=== PATIENT | female | born 2000 | race Caucasian/White ===

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

== ENCOUNTER 2020-08-31 20:03 | Emergency (ER) | payer BC ==
[2020-08-31] MEDS ORDERED: Sodium Chloride 0.9% 1,000 ML IV ONE (20:10)
[2020-08-31 20:34] LABS: SODIUM,NA 141 mmol/L (136-145)
--- NOTE | 2020-08-31 20:52 | EDM.PDOC ---
ED HPI GENERAL MEDICAL PROBLEM - General Chief Complaint: Syncope Stated Complaint: PASSING OUT / TROUBLE BREATHING Time Seen by Provider: 08/31/20 20:15 Source of Information: Reports: Patient, Family History Limitations: Reports: No Limitations - History of Present Illness INITIAL COMMENTS - FREE TEXT/NARRATIVE: ED with family via wheelchair mom reports recurrent syncopal episodes Hx CARUSO disease. Tonight c/o chest hurting. has had similar episodes in past but usually resolve in 30minutes this ongoing for longer time. C/o generalized body aches feel sore throat tonight. Mom states no episodes for approximately 6 months then out in heat on Sunday and "passed out" a couple times after came back inside. 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 Musculoskeletal 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: None Neurological 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: Other (See Below) Other Neuro History: POTS Psychiatric 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: Anxiety, Depression Endocrine/Metabolic 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: None Hematologic 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: None Immunologic 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: None Oncologic (Cancer) 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: None Dermatologic 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: None Social & Family History - Family History Family Medical History: No Pertinent Family History - Tobacco Use Tobacco Use Status *Q: Never Tobacco User Second Hand Smoke Exposure: No - Caffeine Use Caffeine Use: Reports: Coffee - Recreational Drug Use Recreational Drug Use: No - Living Situation & Occupation Living situation: Reports: with Family Occupation: Student ED ROS GENERAL - Review of Systems Review Of Systems: Comprehensive ROS is negative, except as noted in HPI. - Physical Exam Exam: See Below Exam Limited By: No Limitations General Appearance: Alert, Mild Distress Eye Exam: Bilateral Eye: EOMI Ears: Normal External Exam Nose: Normal Inspection Throat/Mouth: Normal Inspection Head Exam: Atraumatic, Normocephalic Neck: Normal Inspection, Full Range of Motion Respiratory/Chest: No Respiratory Distress, Lungs Clear, Normal Breath Sounds Cardiovascular: Normal Peripheral Pulses, Regular Rate, Rhythm, Tachycardia GI/Abdominal: Normal Bowel Sounds, Soft, Non-Tender Neuro Exam (Abbreviated): Other (perodic brief syncopal episodes but does arouse easily to moms voice. ) #1 Interpretation EKG Date: 08/31/20 Time: 20:22 Rhythm: Other (sinus tachycardia) Rate (Beats/Min): 101 [place]: Normal P-Wave: Present QRS: Normal ST-T: Normal Comparison: No Change Course - Vital Signs Last Recorded V/S: Last Vital Signs Temp 97.8 F 08/31/20 20:16 Pulse 109 H 08/31/20 20:16 Resp 12 08/31/20 20:16 BP 140/84 08/31/20 20:16 Pulse Ox 100 08/31/20 20:16 - Orders/Labs/Meds Orders: Active Orders 24 hr Category Date Time Status CULTURE STREP A CONFIRMATION [] Stat Lab 08/31/20 21:04 Results CULTURE URINE [] Stat Lab 08/31/20 21:20 Received STREP SCRN A RAPID W CULT CONF [] Stat Lab 08/31/20 21:04 Results Labs: Laboratory Tests 08/31/20 08/31/20 08/31/20 Range/Units 20:11 20:11 20:11 WBC 15.9 H (5.0-10.0) 10^3/uL RBC 4.67 (4.2-5.4) 10^6/uL Hgb 13.2 (12.0-16.0) g/dL Hct 39.9 (37.0-47.0) % MCV 85.4 (80-100) fL MCH 28.3 (27.0-34.0) pg MCHC 33.1 (33.0-35.0) g/dL Plt Count 305 D (150-450) 10^3/uL Neut % (Auto) 85.6 H (42.2-75.2) % Lymph % (Auto) 7.5 L (20.5-50.1) % [place] % (Auto) 6.2 (2-8) % Eos % (Auto) 0.6 L (1.0-3.0) % Baso % (Auto) 0.1 (0.0-1.0) % Sodium 141 (136-145) mmol/L Potassium 3.9 (3.5-5.1) mmol/L Chloride 102 (98-107) mmol/L Carbon Dioxide 25 (21-32) mmol/L Anion Gap 17.9 H (7-13) mEq/L BUN 9 (7-18) mg/dL Creatinine 0.90 (0.55-1.02) mg/dL Est Cr Clr Drug Dosing 86.82 mL/min Estimated GFR (MDRD) > 60 BUN/Creatinine Ratio 10.0 (No establ ref range) Glucose 104 H (70-99) mg/dL Lactic Acid 1.6 (0.4-2.0) mmol/L Calcium 8.9 (8.5-10.1) mg/dL Total Bilirubin 0.3 (0.2-1.0) mg/dL AST 15 (15-37) U/L ALT 26 (14-59) U/L Alkaline Phosphatase 62 (46-116) U/L C-Reactive Protein 6.4 H (0.0-0.9) mg/dL Total Protein 7.7 (6.4-8.2) g/dL Albumin 3.6 (3.4-5.0) g/dL Globulin 4.1 Albumin/Globulin Ratio 0.9 Amylase 54 (25-115) U/L Lipase 122 (73-393) U/L HCG, Qual Negative Urine Color (YELLOW) Urine Appearance (CLEAR) Urine pH (5.0-9.0) Ur Specific [place] (1.005-1.030) Urine Protein (NEGATIVE) Urine Glucose (UA) (NEGATIVE) Urine Ketones (NEGATIVE) Urine Occult Blood (NEGATIVE) Urine Nitrite (NEGATIVE) Urine Bilirubin (NEGATIVE) Urine Urobilinogen (0.2-1.0) mg/dL Ur Leukocyte Esterase (NEGATIVE) Urine RBC /HPF Urine WBC (0-5/HPF) /HPF Ur Epithelial Cells (NOT SEEN) /HPF Amorphous Sediment (NOT SEEN) /HPF Urine Bacteria (0-FEW/HPF) /HPF Urine Mucus (NOT SEEN) /LPF Influenza Type A RNA (NEGATIVE) Influenza Type B RNA (NEGATIVE) SARS-CoV-2 RNA (CHEVY) (NEGATIVE) 08/31/20 08/31/20 Range/Units 20:17 21:20 WBC (5.0-10.0) 10^3/uL RBC (4.2-5.4) 10^6/uL Hgb (12.0-16.0) g/dL Hct (37.0-47.0) % MCV (80-100) fL MCH (27.0-34.0) pg MCHC (33.0-35.0) g/dL Plt Count (150-450) 10^3/uL Neut % (Auto) (42.2-75.2) % Lymph % (Auto) (20.5-50.1) % [place] % (Auto) (2-8) % Eos % (Auto) (1.0-3.0) % Baso % (Auto) (0.0-1.0) % Sodium (136-145) mmol/L Potassium (3.5-5.1) mmol/L Chloride (98-107) mmol/L Carbon Dioxide (21-32) mmol/L Anion Gap (7-13) mEq/L BUN (7-18) mg/dL Creatinine (0.55-1.02) mg/dL Est Cr Clr Drug Dosing mL/min Estimated GFR (MDRD) BUN/Creatinine Ratio (No establ ref range) Glucose (70-99) mg/dL Lactic Acid (0.4-2.0) mmol/L Calcium (8.5-10.1) mg/dL Total Bilirubin (0.2-1.0) mg/dL AST (15-37) U/L ALT (14-59) U/L Alkaline Phosphatase (46-116) U/L C-Reactive Protein (0.0-0.9) mg/dL Total Protein (6.4-8.2) g/dL Albumin (3.4-5.0) g/dL Globulin Albumin/Globulin Ratio Amylase (25-115) U/L Lipase (73-393) U/L HCG, Qual Urine Color Yellow (YELLOW) Urine Appearance Slightly cloudy (CLEAR) Urine pH 7.0 (5.0-9.0) Ur Specific [place] 1.015 (1.005-1.030) Urine Protein Negative (NEGATIVE) Urine Glucose (UA) Negative (NEGATIVE) Urine Ketones Negative (NEGATIVE) Urine Occult Blood Trace-intact H (NEGATIVE) Urine Nitrite Negative (NEGATIVE) Urine Bilirubin Negative (NEGATIVE) Urine Urobilinogen 0.2 (0.2-1.0) mg/dL Ur Leukocyte Esterase Trace H (NEGATIVE) Urine RBC 5-10 H /HPF Urine WBC 5-10 H (0-5/HPF) /HPF Ur Epithelial Cells Few (NOT SEEN) /HPF Amorphous Sediment Rare (NOT SEEN) /HPF Urine Bacteria Moderate H (0-FEW/HPF) /HPF Urine Mucus Few H (NOT SEEN) /LPF Influenza Type A RNA Negative (NEGATIVE) Influenza Type B RNA Negative (NEGATIVE) SARS-CoV-2 RNA (CHEVY) Negative (NEGATIVE) Meds: Medications Discontinued Medications Generic Name Dose Route Start Last Admin Trade Name Freq PRN Reason Stop Dose Admin Sodium Chloride 1,000 mls @ 999 mls/hr 08/31/20 20:10 08/31/20 20:20 Normal Saline IV 08/31/20 21:10 999 mls/hr .BOLUS ONE Administration Ketorolac Tromethamine 15 mg 08/31/20 22:33 08/31/20 22:47 Ketorolac 30 Mg/Ml Sdv IVPUSH 08/31/20 22:34 15 mg ONETIME ONE Administration Methylprednisolone Sodium Succinate 62.5 mg 08/31/20 21:44 08/31/20 21:51 Methylprednisolone Sodium Succinate 125 Mg/2 Ml Sdv IVPUSH 08/31/20 21:45 62.5 mg ONETIME ONE Administration Nitrofurantoin Macrocrystals 100 mg 08/31/20 22:32 08/31/20 22:48 Nitrofurantoin Monohydrate/Macrocrystalline 100 Mg Cap PO 08/31/20 22:33 100 mg ONETIME ONE Administration - Re-Assessments/Exams Free Text/Narrative Re-Assessment/Exam: 08/31/20 20:51 family at bedside. improved with fluids. alert talking and laughing with family. Departure - Departure Time of Disposition: 22:40 Disposition: Home, Self-Care 01 Condition: Good Clinical Impression: POTS (postural orthostatic tachycardia syndrome) UTI (urinary tract infection) Qualifiers: Urinary tract infection type: acute cystitis Hematuria presence: without hematuria Qualified Code(s): N30.00 - Acute cystitis without hematuria Syncopal episodes Qualifiers: Syncope type: unspecified Qualified Code(s): R55 - Syncope and collapse - Discharge Information *PRESCRIPTION DRUG MONITORING PROGRAM REVIEWED*: No *COPY OF PRESCRIPTION DRUG MONITORING REPORT IN PATIENT BLAIR: No Instructions: Dehydration, Adult, [id number], Urinary Tract Infection, Adult Forms: ED Department Discharge Additional Instructions: macrobid 100mg twice daily for one week clinic follow up this week increase fluids alternate tylenol and ibuprofen every 4 hours as needed for discomfort Sepsis Event Note (ED) - Evaluation Sepsis Screening Result: No Definite Risk - Focused Exam Vital Signs: Vital Signs Temp Pulse Resp BP Pulse Ox 08/31/20 20:16 97.8 F 109 H 12 140/84 100 - My Orders Last 24 Hours: My Active Orders 08/31/20 21:04 CULTURE STREP A CONFIRMATION [RM] Stat STREP SCRN A RAPID W CULT CONF [RM] Stat 08/31/20 21:20 CULTURE URINE [RM] Stat - Assessment/Plan Last 24 Hours: My Active Orders 08/31/20 21:04 CULTURE STREP A CONFIRMATION [RM] Stat STREP SCRN A RAPID W CULT CONF [RM] Stat 08/31/20 21:20 CULTURE URINE [RM] Stat
[2020-08-31 20:55] LABS: ANION GAP 17.9 mEq/L (7-13); CHLORIDE,CL 102 mmol/L (98-107)
[2020-08-31 20:59] LABS: CORONAVIRUS COVID-19 NAA NEGATIVE (NEGATIVE)
[2020-08-31] MEDS ORDERED: methylPREDNISolone Sodium Succinate 125 MG/2 ML SDV IVPUSH ONE (21:44)
[2020-08-31] MEDS ORDERED: Nitrofurantoin Monohydrate/Macrocrystalline 100 MG Cap PO ONE (22:32)
[2020-08-31] MEDS ORDERED: Ketorolac 30 MG/ML SDV IVPUSH ONE (22:33)
== END 2020-08-31 22:58 | disposition home or self-care (01) ==
LOC: DL.ED 20:03
DX: I49.8 Other specified cardiac arrhythmias (principal); N30.00 Acute cystitis without hematuria; R00.0 Tachycardia, unspecified; Z20.822 Contact with and (suspected) exposure to COVID-19
CPT/HCPCS: 0240U; 36415; 80053; 81001; 82150; 83605; 83690; 84703; 85025; 86140; 87081; 87086; 87430; 93005; 93010; 96374; 96375; 99284; 99285; A9270; J1885; J2930; J7030

== ENCOUNTER 2020-12-06 14:20 | Emergency (ER) | payer BC ==
[2020-12-06] MEDS ORDERED: Acetaminophen/oxyCODONE 325-5 MG Tab PO ONE (14:21)
[2020-12-06] MEDS ORDERED: Sodium Chloride 0.9% 1,000 ML IV ONE (14:51)
[2020-12-06] MEDS ORDERED: Morphine 2 MG/ML SYRINGE IVPUSH ONE (14:51)
--- NOTE | 2020-12-06 14:58 | EDM.PDOC ---
ED HPI GENERAL MEDICAL PROBLEM - General Chief Complaint: Abdominal Pain Stated Complaint: SEVERE PAIN LOWER RIGHT SIDE Time Seen by Provider: 12/06/20 14:45 Source of Information: Reports: Patient History Limitations: Reports: No Limitations - History of Present Illness INITIAL COMMENTS - FREE TEXT/NARRATIVE: This 20 yo female patient reports to the ED with increased pain in her right lower quadrant. The patient reports she has been experiencing similar intermittent symptoms over the past 9 months. The patient reports she has been worked up in 2 ED's, by medical support specialist, by a GI specialist and by her primary care provider. The patient reports she has had [address] scans of her abdomen and pelvis. The patient reports her first scan demonstrated some signs of a urinary tract infection (Pylonephritis) and ovarian cysts. The patient reports her 2nd CT demonstrated some scarring in her right kidney, but no additional abnormalities. The patient reports she was sent to PT due to a possible abdominal wall injury. After 2 visits to PT, the patient reports she was sent to the ED for further evaluation and management. The patient reports her current pain is a 5/10, but her pain increases to a 9/10 with movement and with palpation. Duration: Week(s):, Intermittent Location: Reports: Abdomen (RLQ) Quality: Reports: Ache, Sharp, Stabbing Severity: Severe Improves with: Reports: None Worsens with: Reports: None Context: Reports: Other Associated Symptoms: Reports: No Other Symptoms Right Lower Abdomen Pain Score (Numeric/FACES): 5 - Related Data Allergies Allergy/AdvReac Type Severity Reaction Status Date / Time No Known Allergies Allergy Verified 12/06/20 14:29 Home Meds: Home Meds Desogestrel-Ethinyl Estradiol [Isibloom 28 Day Tablet] 1 each PO DAILY 12/06/20 [History] Past Medical History HEENT 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: None Cardiovascular 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: None Respiratory 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: None Gastrointestinal 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: None Genitourinary 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: None 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: 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 Musculoskeletal 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: None Neurological 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: Other (See Below) Other Neuro History: POTS Psychiatric 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: Anxiety, Depression Endocrine/Metabolic 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: None Hematologic 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: None Immunologic 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: None Oncologic (Cancer) 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: None Dermatologic 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: None Social & Family History - Family History Family Medical History: No Pertinent Family History - Tobacco Use Tobacco Use Status *Q: Never Tobacco User Second Hand Smoke Exposure: No - Caffeine Use Caffeine Use: Reports: Coffee - Recreational Drug Use Recreational Drug Use: No - Living Situation & Occupation Living situation: Reports: with Family Occupation: Student ED ROS GENERAL - Review of Systems Review Of Systems: Comprehensive ROS is negative, except as noted in HPI. ED EXAM, GI/ABD - Physical Exam Exam: See Below Exam Limited By: No Limitations General Appearance: Alert, WD/WN, Moderate Distress Eyes: Bilateral: Normal Appearance, EOMI Ears: Normal External Exam, Normal Canal, Hearing Grossly Normal, Normal TMs Nose: Normal Inspection, Normal Mucosa, No Blood Throat/Mouth: Normal Inspection, Normal Lips, Normal Teeth, Normal Gums, Normal Oropharynx, Normal Voice, No Airway Compromise Head: Atraumatic, Normocephalic Neck: Normal Inspection, Supple, Non-Tender, Full Range of Motion Respiratory/Chest: No Respiratory Distress, Lungs Clear, Normal Breath Sounds, No Accessory Muscle Use, Chest Non-Tender Cardiovascular: Normal Peripheral Pulses, Regular Rate, Rhythm, No Edema, No Gallop, No JVD, No Murmur, No Rub GI/Abdominal Exam: Normal Bowel Sounds, Soft, No Organomegaly, No Distention, No Abnormal Bruit, No Mass, Pelvis Stable, Tender (Right lower quadrant pain. Rebound tenderness. Positive Psoas. ) (Female) Exam: Deferred Rectal (Female) Exam: Deferred Back Exam: Normal Inspection, Full Range of Motion, NT Extremities: Normal Inspection, Normal Range of Motion, Non-Tender, Normal Capillary Refill, No Pedal Edema Neurological: Alert, Oriented, CN II-XII Intact, Normal Cognition, Normal Gait, Normal Reflexes, No Motor/Sensory Deficits Psychiatric: Normal Affect, Normal Mood Skin Exam: Warm, Dry, Intact, Normal Color, No Rash Lymphatic: No Adenopathy Course - Vital Signs Last Recorded V/S: Last Vital Signs Temp 98.8 F 12/06/20 14:24 Pulse 89 12/06/20 14:24 Resp 18 12/06/20 14:24 BP 143/89 H 12/06/20 14:24 Pulse Ox 98 12/06/20 14:24 - Orders/Labs/Meds Orders: Active Orders 24 hr Category Date Time Status Sodium Chloride 0.9% [Normal Saline] 1,000 ml Med 12/06/20 14:51 Active IV .BOLUS Medication Orders Sodium Chloride (Normal Saline) 1,000 mls @ 250 mls/hr IV .BOLUS ONE Stop: 12/06/20 18:50 Last Admin: 12/06/20 15:06 Dose: 250 mls/hr Documented by: WALE Labs: Laboratory Tests 12/06/20 12/06/20 12/06/20 Range/Units 14:59 14:59 15:57 WBC 5.9 (5.0-10.0) 10^3/uL RBC 4.77 (4.2-5.4) 10^6/uL Hgb 13.5 (12.0-16.0) g/dL Hct 40.8 (37.0-47.0) % MCV 85.5 (80-100) fL MCH 28.3 (27.0-34.0) pg MCHC 33.1 (33.0-35.0) g/dL Plt Count 382 D (150-450) 10^3/uL Neut % (Auto) 54.3 (42.2-75.2) % Lymph % (Auto) 33.3 (20.5-50.1) % [place] % (Auto) 7.8 (2-8) % Eos % (Auto) 4.3 H (1.0-3.0) % Baso % (Auto) 0.3 (0.0-1.0) % Sodium 139 (136-145) mmol/L Potassium 4.0 (3.5-5.1) mmol/L Chloride 103 (98-107) mmol/L Carbon Dioxide 27 (21-32) mmol/L Anion Gap 13.0 (7-13) mEq/L BUN 16 (7-18) mg/dL Creatinine 0.72 (0.55-1.02) mg/dL Est Cr Clr Drug Dosing 98.58 mL/min Estimated GFR (MDRD) > 60 BUN/Creatinine Ratio 22.2 (No establ ref range) Glucose 92 (70-99) mg/dL Calcium 9.3 (8.5-10.1) mg/dL Total Bilirubin 0.2 (0.2-1.0) mg/dL AST 14 L (15-37) U/L ALT 36 (14-59) U/L Alkaline Phosphatase 69 (46-116) U/L Total Protein 7.8 (6.4-8.2) g/dL Albumin 3.8 (3.4-5.0) g/dL Globulin 4.0 Albumin/Globulin Ratio 0.9 Urine Color Yellow (YELLOW) Urine Appearance Clear (CLEAR) Urine pH 7.0 (5.0-9.0) Ur Specific [place] 1.015 (1.005-1.030) Urine Protein Negative (NEGATIVE) Urine Glucose (UA) Negative (NEGATIVE) Urine Ketones Negative (NEGATIVE) Urine Occult Blood Negative (NEGATIVE) Urine Nitrite Negative (NEGATIVE) Urine Bilirubin Negative (NEGATIVE) Urine Urobilinogen 0.2 (0.2-1.0) mg/dL Ur Leukocyte Esterase Negative (NEGATIVE) Urine HCG, Qual 12/06/20 Range/Units 15:57 WBC (5.0-10.0) 10^3/uL RBC (4.2-5.4) 10^6/uL Hgb (12.0-16.0) g/dL Hct (37.0-47.0) % MCV (80-100) fL MCH (27.0-34.0) pg MCHC (33.0-35.0) g/dL Plt Count (150-450) 10^3/uL Neut % (Auto) (42.2-75.2) % Lymph % (Auto) (20.5-50.1) % [place] % (Auto) (2-8) % Eos % (Auto) (1.0-3.0) % Baso % (Auto) (0.0-1.0) % Sodium (136-145) mmol/L Potassium (3.5-5.1) mmol/L Chloride (98-107) mmol/L Carbon Dioxide (21-32) mmol/L Anion Gap (7-13) mEq/L BUN (7-18) mg/dL Creatinine (0.55-1.02) mg/dL Est Cr Clr Drug Dosing mL/min Estimated GFR (MDRD) BUN/Creatinine Ratio (No establ ref range) Glucose (70-99) mg/dL Calcium (8.5-10.1) mg/dL Total Bilirubin (0.2-1.0) mg/dL AST (15-37) U/L ALT (14-59) U/L Alkaline Phosphatase (46-116) U/L Total Protein (6.4-8.2) g/dL Albumin (3.4-5.0) g/dL Globulin Albumin/Globulin Ratio Urine Color (YELLOW) Urine Appearance (CLEAR) Urine pH (5.0-9.0) Ur Specific [place] (1.005-1.030) Urine Protein (NEGATIVE) Urine Glucose (UA) (NEGATIVE) Urine Ketones (NEGATIVE) Urine Occult Blood (NEGATIVE) Urine Nitrite (NEGATIVE) Urine Bilirubin (NEGATIVE) Urine Urobilinogen (0.2-1.0) mg/dL Ur Leukocyte Esterase (NEGATIVE) Urine HCG, Qual Negative Meds: Medications Generic Name Dose Route Start Last Admin Trade Name Freq PRN Reason Stop Dose Admin Sodium Chloride 1,000 mls @ 250 mls/hr 12/06/20 14:51 12/06/20 15:06 Normal Saline IV 12/06/20 18:50 250 mls/hr .BOLUS ONE Administration Discontinued Medications Generic Name Dose Route Start Last Admin Trade Name Freq PRN Reason Stop Dose Admin Hydromorphone HCl 0.5 mg 12/06/20 16:49 12/06/20 16:57 Hydromorphone 0.5 Mg/0.5 Ml Syringe IVPUSH 12/06/20 16:50 0.5 mg ONETIME ONE Administration Hydromorphone HCl 0.5 mg 12/06/20 17:03 12/06/20 17:22 Hydromorphone 0.5 Mg/0.5 Ml Syringe IVPUSH 12/06/20 17:04 0.5 mg ONETIME ONE Administration Morphine Sulfate 2 mg 12/06/20 14:51 12/06/20 15:08 Morphine 2 Mg/Ml Syringe IVPUSH 12/06/20 14:52 2 mg ONETIME ONE Administration - Re-Assessments/Exams Free Text/Narrative Re-Assessment/Exam: 12/06/20 17:04 document image technician reported a small amount of endometrium thickening, but no free fluid. Departure - Departure Time of Disposition: 17:37 Disposition: Home, Self-Care 01 Condition: Fair Clinical Impression: Abdominal pain Qualifiers: Abdominal location: right lower quadrant Qualified Code(s): R10.31 - Right lower quadrant pain - Discharge Information *PRESCRIPTION DRUG MONITORING PROGRAM REVIEWED*: Not Applicable *COPY OF PRESCRIPTION DRUG MONITORING REPORT IN PATIENT BLAIR: Not Applicable Instructions: Abdominal Pain, Adult, [id number] Forms: ED Department Discharge Care Plan Goals: The patient was advised of the examination, lab and ultrasound results during t he visit. The patient was given IV fluids, IV Morphine and IV Dilaudid during the visit. The patient was discharged with Percocet (5/325) #2 to take 1 by mouth every 6 hours as needed for pain. The patient was encouraged to follow-up with her primary care facility for continued evaluation and further management. If the patient has any additional symptoms or concerns, the patient should either return to the emergency department or visit her primary care facility. Sepsis Event Note (ED) - Evaluation Sepsis Screening Result: No Definite Risk - Focused Exam Vital Signs: Vital Signs Temp Pulse Resp BP Pulse Ox 12/06/20 14:24 98.8 F 89 18 143/89 H 98 - My Orders Last 24 Hours: My Active Orders 12/06/20 14:51 Sodium Chloride 0.9% [Normal Saline] 1,000 ml IV .BOLUS - Assessment/Plan Last 24 Hours: My Active Orders 12/06/20 14:51 Sodium Chloride 0.9% [Normal Saline] 1,000 ml IV .BOLUS
[2020-12-06 15:24] LABS: CHLORIDE,CL 103 mmol/L (98-107); SODIUM,NA 139 mmol/L (136-145)
--- NOTE | 2020-12-06 16:48 | US ---
EXAMINATION: Pelvis Non OB Ltd SEX: Female AGE: 20 years CLINICAL HISTORY: 20-year-old afebrile female complaining of right lower quadrant (RLQ) pain. Normal WBC. CT scan 28 October 2020 revealed "chronic abnormal appearance right kidney; otherwise negative". Reevaluate please. INTERPRETATION: Negative exam. 1. No abnormal mass or fluid collections identified in the right lower quadrant images. 2. No echogenic "shadowing" calcifications. 3. No adnexal mass or fluid. Normal midline uterus. Urinary bladder unremarkable where visualized. Note: Patient "not particularly responsive" to RLQ pressure with the sonographic probe/probing.
[2020-12-06] MEDS ORDERED: HYDROmorphone 0.5 MG/0.5 ML Syringe IVPUSH ONE ×2 (16:49→17:03)
[2020-12-06] MEDS ORDERED: Acetaminophen/oxyCODONE 325-5 MG Tab ONE (17:39)
== END 2020-12-06 17:47 | disposition home or self-care (01) ==
LOC: DL.ED 14:20
DX: R10.31 Right lower quadrant pain (principal)
CPT/HCPCS: 36415; 76857; 80053; 81003; 81025; 85025; 96374; 96375; 99284; A9270; J1170; J2270; J7030

== ENCOUNTER 2021-05-26 18:34 | Emergency (ER) | payer BC ==
[2021-05-26] MEDS ORDERED: Sodium Chloride 0.9% 10 ML Syringe FLUSH PRN (18:54)
[2021-05-26] MEDS ORDERED: Sodium Chloride 0.9% 1,000 ML IV ONE (19:17)
[2021-05-26 19:34] LABS: AMPHETAMINES,URINE NEGATIVE (NEGATIVE); BARBITURATES,URINE NEGATIVE (NEGATIVE); BENZODIAZEPINE,URINE NEGATIVE (NEGATIVE); MDMA (ECSTASY), URINE NEGATIVE (NEGATIVE); METHADONE,URINE NEGATIVE (NEGATIVE); METHAMPHETAMINES,URINE NEGATIVE (NEGATIVE); OPIATES,URINE NEGATIVE (NEGATIVE); OXYCODONE,URINE NEGATIVE (NEGATIVE); PHENCYCLIDINE,URINE NEGATIVE (NEGATIVE); TCA,URINE NEGATIVE (NEGATIVE)
[2021-05-26 20:21] LABS: ANION GAP 17.1 mEq/L (7-13); CHLORIDE,CL 103 mmol/L (98-107); SODIUM,NA 139 mmol/L (136-145)
== END 2021-05-26 20:50 | disposition home or self-care (01) ==
LOC: DL.ED 18:34
DX: R07.89 Other chest pain (principal)
CPT/HCPCS: 36415; 80053; 80305-QW; 80307; 81003; 81025; 83605; 83735; 84443; 84484; 85025; 86140; 86308; 93005; 93010; 99283; 99285-25; J3490; J7030